=== PATIENT | male | born 1965 | race Caucasian/White ===

== ENCOUNTER 2018-02-13 17:45 | Inpatient (IN) | payer OTHER ==
[~2018-02-13] VITALS: Ht 180.3 cm; Wt 74.8 kg
--- NOTE | 2018-02-13 | NUR ---
VITAL SIGNS WNL. PT IN STABLE CONDITION, NO SIGNS OF DISTRESS NOTED. BED IN LOWEST POSITION, CALL LIGHT WITHIN REACH. WILL CONTINUE TO MONITOR. Addendum: 02/14/18 at 0734 by Idalmis Anthony RN PLEASE DISREGARD.
--- NOTE | 2018-02-13 04:49 | NUR ---
PT GIVEN SNACK OF SANDWICH, JUICE AND CRACKERS REQUESTED. PT ATE ALL THE FOOD. HE DENIES PAIN AND IS RESTING QUIETLY IN BED AT THIS TIME. IV NACL RUNNING AT 70 ORDERED, IV SITE PATENT WITH S/S OF INFILTRATION. CALL BELTRÁN IN REACH FREQUENT CHECKS RENDERED AND BED IN LOW POSITION WITH SIDE RAILS UP AT THIS TIME. V/S STABLE.PT SISTER JESSICA CALLED AND SAID THAT SHE WILL BE IN TO VISIT TOMORROW PT INFORMED.
[2018-02-13 17:49] VITALS: BP 124/79
--- NOTE | 2018-02-13 17:53 | NUR ---
PT AMB TO BED 3
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
[2018-02-13] MEDS ORDERED: NACL 0.9% 1,000 ML IV ONE (18:15)
--- NOTE | 2018-02-13 18:39 | NUR ---
social service technician at bedside.
[2018-02-13 18:53] LABS: BASOPHILS # (AUTO) 0.1 K/uL (0.00-0.22); BASOPHILS % (AUTO) 0.3 % (0.0-2.0); EOSINOPHILS # (AUTO) 0.1 K/uL (0-0.4); EOSINOPHILS % (AUTO) 0.8 % (0.0-4.0); HEMOGLOBIN 12.3 g/dL (12.0-18.0); LYMPHOCYTES # (AUTO) 1.4 K/uL (2.0-11.5); LYMPHOCYTES % (AUTO) 7.3 % (20.5-51.1); MEAN CORPUSCULAR HEMOGLOBIN 31 pg (27-31); MEAN CORPUSCULAR HGB CONC 33 g/dL (33-37); MEAN CORPUSCULAR VOLUME 93.8 fL (80-94); MONOCYTES # (AUTO) 0.8 K/uL (0.8-1.0); MONOCYTES % (AUTO) 4.4 % (1.7-9.3); NEUTROPHILS # (AUTO) 16.6 K/uL (1.8-7.7); PLATELET COUNT (AUTO) 465 K/uL (140-450); RED BLOOD CELL COUNT(AUTO) 3.95 MIL/uL (4.20-6.10); RED CELL DISTRIBUTION WIDTH 13.4 % (11.6-13.7)
--- NOTE | 2018-02-13 19:07 | NUR ---
Pt report given to BINDU SIDDIQUI. Transfer of care at this time.
[2018-02-13 19:10] LABS: ALBUMIN 2.7 g/dL (3.4-5.0); ANION GAP 10.8 (8-16); ASPARTATE AMINOTRANSFERASE 10 U/L (15-37); CHLORIDE 105 mmol/L (98-107); CREATININE 0.8 mg/dL (0.7-1.3); GFR ARICAN-AMERICAN 130 mL/min (>90); POTASSIUM 3.8 mmol/L (3.5-5.1); SODIUM SERUM 140 mmol/L (136-145); TOTAL BILIRUBIN 0.5 mg/dL (0.0-1.0); UREA NITROGEN, BLOOD 16 mg/dL (7-18)
--- NOTE | 2018-02-13 19:10 | NUR ---
GOT EPORT FROM BINDU BACA.
[2018-02-13 19:12] LABS: GLUCOSE 123 mg/dL (74-106)
[2018-02-13 19:24] LABS: NEUTROPHILS % (AUTO) 87.2 % (42.2-75.2)
[2018-02-13] MEDS ORDERED: PIPERACILLIN/TAZOBACTAM 4.5 GM in DEXTROSE 5% 100 ML IV ONE (19:50)
[2018-02-13] MEDS: NACL 0.9% 1,000 ML IV SCH (20:13)
[2018-02-13] MEDS ORDERED: ONDANSETRON 4 MG/2 ML VIAL IVP PRN (20:15)
[2018-02-13] MEDS ORDERED: MORPHINE SULFATE 4 MG/ML SYR IVP PRN (20:15)
[2018-02-13] MEDS ORDERED: ALBUTEROL 0.083% 2.5 MG/3 ML NEBU INH PRN (20:15)
[2018-02-13] MEDS ORDERED: PIPERACILLIN/TAZOBACTAM 2.25 GM VIAL IV ONE (20:45)
--- NOTE | 2018-02-13 20:45 | NUR ---
Patient will be admitted to care of . Admited to M/S. Will go to room. Belongings list completed. Report to BINDU PRADO.
--- NOTE | 2018-02-13 20:56 | NUR ---
PT ARRIVED TO FLOOR VIA W/C ESCORTED BY PIM RN. PT AOX4 SKIN INTACT EXCEPT FOR BOTTOM OF HIS FEET WHICH ARE NOTED WITH WHITE MOIST MACERATED SKIN. PT HAS 20G ON R HAND WITH ZOSYN RUNNING ORDERED, WHICH WAS STARTED IN ER. NO INFILTRATION OF IV SITE NOTED. PT CHIEF C/O WAS GENERALIZED WEAKNESS AND HE WAS DX WITH PN AFTER POSITIVE CHEST X RAY DONE IN THE ER. PT HAS HX OF HTN AND CABAGE. LUNG SOUND DIMINISHED, NO SOB NOTED PT RESPIRATIONS WERE EVEN AND UNLABORED PT HAS NO COMPLAINTS OF PAIN AT THIS TIME, HE EXPRESSED A DESIRE TO LEAVE BUT WAS WILLING TO STAY FOR THE NIGHT, BECAUSE THE DOCTOR WANTED HIM TO STAY. PT IS AMBULATORY AND WALKED TO THE BATHROOM TO WASH UP. MRSA SWAB DONE AND URINE SAMPLE PROVIDED. PT ASKED FOR FOOD WHICH WAS GIVEN TO HIM AFTER INTERVIEW ADMISSION QUESTIONS WERE FINISHED.
--- NOTE | 2018-02-13 21:00 | NUR ---
PICTURES TAKEN OF BOTTOM OF BOTH FEET FOR ADMISSION DOCUMENTATION. PT COOPERATIVE, NO S/S OF DISTRESS PT DENIES PAIN AT THIS TIME CALL BELTRÁN IN REACH AND BED IN LOW POSITION.
[2018-02-13 22:26] LABS: APPEARANCE,URINE CLOUDY (CLEAR); BILIRUBIN,URINE NEGATIVE (NEGATIVE); BLOOD, URINE NEGATIVE (NEGATIVE); COLOR,URINE YELLOW (YELLOW); LEUKOCYTE ESTERASE ,URINE NEGATIVE (NEGATIVE); NITRITE, URINE NEGATIVE (NEGATIVE); PH,URINE 7.5 (5.0-9.0); UGLUCOSE NEGATIVE (NEGATIVE)
[2018-02-13 22:31] LABS: BARBITURATE, URINE NEG. ng/ml (NEG <=200); BENZODIAZEPINE, URINE NEG. ng/mL (NEG <=200); CANNABINOID, URINE NEG. ng/mL (NEG <=50); COCAINE, URINE NEG. ng/mL (NEG <=300); OPIATE, URINE NEG. ng/mL (NEG <=2000); PHENCYCLIDINE SCREEN,URINE NEG. ng/mL (NEG <=25)
[2018-02-13 22:44] LABS: WBC,URINE 0-5 (RARE) /HPF (0-5)
[2018-02-13 22:45] LABS: RBC,URINE 0-5 (RARE) /HPF (0-5)
[2018-02-14] VITALS: BP 130/81
--- NOTE | 2018-02-14 | NUR ---
VITAL SIGNS WNL. PT IN STABLE CONDITION, NO SIGNS OF DISTRESS NOTED. BED IN LOWEST POSITION, CALL LIGHT WITHIN REACH. WILL CONTINUE TO MONITOR.
--- NOTE | 2018-02-14 04:00 | NUR ---
PT IN STABLE CONDITION, NO SIGNS OF DISTRESS NOTED. BED IN LOWEST POSITION, CALL LIGHT WITHIN REACH. WILL CONTINUE TO MONITOR.
[2018-02-14] MEDS ORDERED: PIPERACILLIN/TAZOBACTAM 3.375 GM VIAL IV ONE (05:32)
[2018-02-14] MEDS: PIPER/TAZO 3.375GM/D5W PREMIX 50 ML IV SCH ×2 (05:46→12:27)
--- NOTE | 2018-02-14 07:30 | NUR ---
RECEIVED REPORT FROM NIGHTSHIFT NURSE AT BEDSIDE. PATIENT ASLEEP AT THIS TIME BUT AROUSABLE TO NAME. NO SIGNS OF PAIN OR RESPIRATORY DISTRESS NOTED AT THIS TIME. PT HAS A RIGHT HAND 20 G INFUSING 70 ML/HR. PATIENT BED IN LOWEST POSITION. PLACED CALL LIGHT WITHIN REACH OF PATIENT. WILL CONTINUE TO MONITOR PATIENT.
--- NOTE | 2018-02-14 07:32 | NUR ---
ENDORSED PT TO DAY SHIFT RN NIVIA FOR CONTINUITY OF CARE. PT IN STABLE CONDITION.
[2018-02-14 07:53] LABS: BASOPHILS % (AUTO) 0.2 % (0.0-2.0); EOSINOPHILS # (AUTO) 0.4 K/uL (0-0.4); EOSINOPHILS % (AUTO) 2.8 % (0.0-4.0); HEMATOCRIT 37.2 % (36-52); LYMPHOCYTES # (AUTO) 1.9 K/uL (2.0-11.5); LYMPHOCYTES % (AUTO) 13.7 % (20.5-51.1); MEAN CORPUSCULAR HEMOGLOBIN 31 pg (27-31); MEAN CORPUSCULAR HGB CONC 32 g/dL (33-37); MEAN CORPUSCULAR VOLUME 94.9 fL (80-94); MONOCYTES # (AUTO) 0.9 K/uL (0.8-1.0); MONOCYTES % (AUTO) 6.4 % (1.7-9.3); NEUTROPHILS # (AUTO) 10.4 K/uL (1.8-7.7); NEUTROPHILS % (AUTO) 76.9 % (42.2-75.2); PLATELET COUNT (AUTO) 483 K/uL (140-450); RED BLOOD CELL COUNT(AUTO) 3.92 MIL/uL (4.20-6.10); RED CELL DISTRIBUTION WIDTH 13.5 % (11.6-13.7); WHITE BLOOD COUNT (AUTO) 13.5 K/uL (4.8-10.8)
[2018-02-14 08:00] VITALS: BP 104/73
[2018-02-14 08:09] LABS: ALBUMIN 2.4 g/dL (3.4-5.0); CARBON DIOXIDE 25.8 mmol/L (21-32); CREATININE 0.7 mg/dL (0.7-1.3); POTASSIUM 3.8 mmol/L (3.5-5.1); TOTAL BILIRUBIN 0.3 mg/dL (0.0-1.0)
--- NOTE | 2018-02-14 08:25 | NUR ---
ASLEEP NO EVIDENCE OD PULMONARY DISTRESS NOTED AT THIS TIME
[2018-02-14] MEDS ORDERED: ENOXAPARIN 30 MG/0.3 ML SYR SUBQ SCH (09:00)
--- NOTE | 2018-02-14 10:05 | NUR ---
PATIENT TOOK AM MEDICATION LOVENOX. PATIENT TOLERATED WELL.
[2018-02-14] MEDS: NACL 0.9% 1,000 ML IV SCH (10:38)
--- NOTE | 2018-02-14 11:39 | NUR ---
PATIENT ASLEEP AT THIS TIME. NO COMPLAINTS OF PAIN OR RESPIRATORY DISTRESS NOTED. WILL CONTINUE TO MONITOR PATIENT.
[2018-02-14] MEDS ORDERED: TRAZ-286 PO ×2 (11:44→11:46)
[2018-02-14] MEDS ORDERED: MIRT15TA PO ×2 (11:44→11:46)
[2018-02-14] MEDS ORDERED: DOXY100C9 PO (11:46)
--- NOTE | 2018-02-14 12:33 | NUR ---
PATIENT LAYING IN BED. NO COMPLAINTS OF PAIN. WILL CONTINUE TO MONITOR PATIENT.
--- NOTE | 2018-02-14 13:00 | NUR ---
PATIENT TOOK A SHOWER. PATIENT ABLE TO AMBULATE BACK AND FORTH FROM ROOM. PATIENT TOLERATED WELL.
--- NOTE | 2018-02-14 14:30 | NUR ---
PATIENT SIGNED ALL DISCHARGE PAPERS AND IS AWARE OF ALL PRESCRIPTIONS. PATIENT VERBALIZED UNDERSTANDING OF ALL INSTRUCTIONS. DISCONTINUED PATIENT'S IV WITH CATHETER STILL INTACT. PATIENT GATHERED ALL BELONGINGS AND LEFT IN STABLE CONDITION. WALKED PATIENT TO LOBBY. PATIENT ABLE TO AMBULATE WELL.
--- NOTE | 2018-02-15 08:48 | NUR ---
WOUND CARE EVALUATION NOT DONE. PT. DISCHARGED.
--- NOTE | 2018-02-16 17:08 | NUR ---
RETRO FAXED ER REPORT, H&P TO [facility] [phone] NO DC SUMMARY Addendum: 02/16/18 at 1709 by Kelly Vale CM FAXED DISCHARGE INSTRUCTIONS, NO DC SUMMARY
== END 2018-02-14 14:30 | disposition home or self-care (01) | DRG 720 ==
LOC: MED 17:45 → MTU 20:24
PROVIDERS: ADMIT Hospitalist; ATTEND Hospitalist
DX: A41.9 Sepsis, unspecified organism (principal); E43 Unspecified severe protein-calorie malnutrition; J18.1 Lobar pneumonia, unspecified organism; F15.20 Other stimulant dependence, uncomplicated; I25.2 Old myocardial infarction; Z95.1 Presence of aortocoronary bypass graft; Z72.0 Tobacco use; J44.9 Chronic obstructive pulmonary disease, unspecified; M19.90 Unspecified osteoarthritis, unspecified site; Z71.6 Tobacco abuse counseling
CPT/HCPCS: 36415; 71045; 80053; 80305; 81001; 82550; 83605; 84484; 85025; 86702; 87040; 87086; 93005; 96361; 96365; 99285; G0482; J1650; J2543; J7060; Q0092

== ENCOUNTER 2018-03-18 20:53 | Emergency (ER) | payer SELFPAY ==
[~2018-03-18] VITALS: Ht 180.3 cm; Wt 74.8 kg
[~2018-03-18 20:53] MED LIST: DOXY100C9 PO; MIRT15TA PO; TRAZ-286 PO
[2018-03-18 21:03] VITALS: BP 136/76
--- NOTE | 2018-03-18 21:06 | NUR ---
TO LOBBY A/W MERRY LAINEZ ERMD NOTED
--- NOTE | 2018-03-18 21:46 | NUR ---
PT TAKEN TO BED 10
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
--- NOTE | 2018-03-18 21:55 | NUR ---
PT MOVED TO CHAIR E
[2018-03-18] MEDS ORDERED: KETOROLAC 30 MG/ML VIAL IM ONE (22:35)
[2018-03-18 23:00] VITALS: BP 118/72
--- NOTE | 2018-03-18 23:00 | NUR ---
Patient discharged with v/s stable. Written and verbal after care instructions given and explained. Patient alert, oriented and verbalized understanding of instructions. Ambulatory with steady gait. All questions addressed prior to discharge. ID band removed. Patient advised to follow up with PMD. Rx of CLOTRIMAZOLE, KEFLEX, NAPROSYN given. Patient educated on indication of medication including possible reaction and side effects. Opportunity to ask questions provided and answered.
== END 2018-03-18 23:00 | disposition home or self-care (01) ==
LOC: MED 20:53
DX: S90.862A Insect bite (nonvenomous), left foot, initial encounter (principal); B35.3 Tinea pedis; I10 Essential (primary) hypertension; Z98.890 Other specified postprocedural states; Z79.899 Other long term (current) drug therapy; W57.XXXA Bitten or stung by nonvenomous insect and other nonvenomous arthropods, initial encounter; Y93.89 Activity, other specified; Y99.8 Other external cause status; Y92.89 Other specified places as the place of occurrence of the external cause
CPT/HCPCS: 96372; 99283; J1885

== ENCOUNTER 2018-08-07 09:00 | Emergency (ER) | payer MEDICAID ==
[~2018-08-07] VITALS: Ht 180.3 cm; Wt 77.6 kg
[~2018-08-07 09:00] MED LIST changes: -TRAZ-286 PO; +TRAZ-370 PO
[2018-08-07 09:05] VITALS: BP 131/94
--- NOTE | 2018-08-07 09:10 | NUR ---
52Y/M BIB SELF C/O FERMIN FOOT PAIN X 6 MONTHS, DENIES ANY TRAUMA/INJURY. 10/10 PAIN SCALE, - SWELLING, - REDNESS, PIN & NEEDLE FEELING IN FERMIN FOOT. PT STATES " HE WALKS DAILY BUT PAIN IS WORSE TODAY". PT AAOX4, VSS, BED DOWN, BEDRAIL UP X 1, ER MD AWARE AND NOTIFIED OF PT STATUS. HX; BYPASS;HEART ATTACK;HERNIA; PRE DIABETIC, NEUROPATHY RX;NONE
[2018-08-07] MEDS ORDERED: KETOROLAC 60 MG/2 ML VIAL IM ONE (09:40)
--- NOTE | 2018-08-07 09:41 | NUR ---
Patient being evaluated by physician at bedside.
[2018-08-07 10:12] LABS: BASOPHILS % (AUTO) 0.5 % (0.0-2.0); EOSINOPHILS # (AUTO) 0.3 K/uL (0-0.4); EOSINOPHILS % (AUTO) 3.7 % (0.0-4.0); HEMATOCRIT 37.9 % (36-52); HEMOGLOBIN 12.6 g/dL (12.0-18.0); LYMPHOCYTES # (AUTO) 1.7 K/uL (2.0-11.5); LYMPHOCYTES % (AUTO) 24.3 % (20.5-51.1); MEAN CORPUSCULAR HEMOGLOBIN 31 pg (27-31); MEAN CORPUSCULAR HGB CONC 33 g/dL (33-37); MEAN CORPUSCULAR VOLUME 94.3 fL (80-94); MONOCYTES # (AUTO) 0.6 K/uL (0.8-1.0); MONOCYTES % (AUTO) 8.8 % (1.7-9.3); NEUTROPHILS # (AUTO) 4.5 K/uL (1.8-7.7); NEUTROPHILS % (AUTO) 62.7 % (42.2-75.2); PLATELET COUNT (AUTO) 235 K/uL (140-450); RED BLOOD CELL COUNT(AUTO) 4.02 MIL/uL (4.20-6.10); RED CELL DISTRIBUTION WIDTH 13.2 % (11.6-13.7); WHITE BLOOD COUNT (AUTO) 7.2 K/uL (4.8-10.8)
[2018-08-07 10:35] LABS: ANION GAP 10.7 (8-16); CARBON DIOXIDE 27.7 mmol/L (21-32); CREATININE 0.6 mg/dL (0.7-1.3); POTASSIUM 3.4 mmol/L (3.5-5.1)
[2018-08-07 10:39] LABS: BILIRUBIN,URINE NEGATIVE (NEGATIVE); BLOOD, URINE NEGATIVE (NEGATIVE); COLOR,URINE YELLOW (YELLOW); LEUKOCYTE ESTERASE ,URINE NEGATIVE (NEGATIVE); NITRITE, URINE NEGATIVE (NEGATIVE); UGLUCOSE NEGATIVE (NEGATIVE)
[2018-08-07 10:41] LABS: ALBUMIN 3.4 g/dL (3.4-5.0); TOTAL BILIRUBIN 0.3 mg/dL (0.0-1.0)
[2018-08-07 10:59] LABS: APPEARANCE,URINE CLEAR (CLEAR); RBC,URINE 0-5 (RARE) /HPF (0-5); WBC,URINE 0-5 (RARE) /HPF (0-5)
[2018-08-07 11:02] VITALS: BP 128/89
--- NOTE | 2018-08-07 11:02 | NUR ---
Patient discharged with v/s stable. Written and verbal after care instructions given and explained. Patient alert, oriented and verbalized understanding of instructions. Ambulatory with steady gait. All questions addressed prior to discharge. ID band removed. Patient advised to follow up with PMD. Rx of tylenol and naprosyn given. Patient educated on indication of medication including possible reaction and side effects. Opportunity to ask questions provided and answered.
== END 2018-08-07 11:02 | disposition home or self-care (01) ==
LOC: MED 09:00
DX: M79.671 Pain in right foot (principal); M79.672 Pain in left foot; I10 Essential (primary) hypertension; G62.9 Polyneuropathy, unspecified; Z95.1 Presence of aortocoronary bypass graft; Z79.2 Long term (current) use of antibiotics; Z79.83 Long term (current) use of bisphosphonates
CPT/HCPCS: 36415; 73630; 80053; 81001; 81002; 82948; 85025; 96372; 99285; J1885

== ENCOUNTER 2018-11-27 18:11 | Emergency (ER) | payer MEDICAID, OTHER ==
[~2018-11-27] VITALS: Ht 180.3 cm; Wt 71.7 kg
[~2018-11-27 18:11] MED LIST changes: -TRAZ-370 PO; +TRAZ-466 PO
[2018-11-27 18:37] VITALS: BP 149/86
--- NOTE | 2018-11-27 19:17 | NUR ---
PT AMBULATED TO BED 2
--- NOTE | 2018-11-27 19:43 | NUR ---
PT BIB SELF C/O BUG BITE TO L ANKLE FOR 6 MONTHS. AREA IS RED, WITH A HEALED SCAB, BLEEDING CONTROLLED. PAIN 2/10.
--- NOTE | 2018-11-27 20:00 | NUR ---
PT GIVEN FOOD AND HOMELESS PACKET AT THIS TIME
[2018-11-27 20:51] VITALS: BP 145/85
--- NOTE | 2018-11-27 20:51 | NUR ---
Patient discharged with v/s stable. Written and verbal after care instructions given and explained. Patient alert, oriented and verbalized understanding of instructions. Ambulatory with steady gait. All questions addressed prior to discharge. ID band removed. Patient advised to follow up with PMD. Rx of motrin, gabapentin, aspirin, gold wallis max strength given. Patient educated on indication of medication including possible reaction and side effects. Opportunity to ask questions provided and answered. homeless packet given, homeless form signed, bus pass given to patient.
== END 2018-11-27 20:51 | disposition home or self-care (01) ==
LOC: MED 18:11
DX: M79.671 Pain in right foot (principal); M79.672 Pain in left foot; I10 Essential (primary) hypertension; I25.10 Atherosclerotic heart disease of native coronary artery without angina pectoris; Z79.2 Long term (current) use of antibiotics; Z79.899 Other long term (current) drug therapy; Z95.1 Presence of aortocoronary bypass graft
CPT/HCPCS: 93005; 99283

== ENCOUNTER 2018-12-18 20:29 | Inpatient (IN) | payer OTHER ==
[~2018-12-18] VITALS: Ht 180.3 cm; Wt 74.4 kg
[2018-12-18 20:30] VITALS: BP 136/84
--- NOTE | 2018-12-18 20:31 | NUR ---
PT TAKEN TO BED 3
[2018-12-18] MEDS ORDERED: KETOROLAC 30 MG/ML VIAL IVP ONE (20:45)
[2018-12-18] MEDS ORDERED: NACL 0.9% 1,000 ML IV ONE ×3 (20:45→23:20)
--- NOTE | 2018-12-18 22:09 | NUR ---
Dr. sIrael evaluating patient at bedside.
--- NOTE | 2018-12-18 22:27 | NUR ---
Note blake in EDM - 12/18/18 at 2320 by CASH PT WITH MILD CRACKLES, PT DENIES SOB, ER MADE AWARE, CLARIFIED 1L NS BOLUS FOR TACHYCARDIA. ADMINSITERED ORDERED WITH EDUCATION, PT VERBALIZED UNDERSTANDING, TOLERATING WELL.
--- NOTE | 2018-12-18 22:27 | NUR ---
PT WITH MILD RHONCHI, PT DENIES SOB, ER MADE AWARE, CLARIFIED 1L NS BOLUS FOR TACHYCARDIA. ADMINSITERED ORDERED WITH EDUCATION, PT VERBALIZED UNDERSTANDING, TOLERATING WELL.
--- NOTE | 2018-12-18 23:20 | NUR ---
PT LAYING IN BED, VS NOTED, RR EVEN AND UNLABORED, LUNGS SOUNDS WITH RHONCHI. SECOND 1L NS BOLUS FOR TACHYCARDIA PER VERBAL ORDER FROM DR CARBALLO. ADMINSITERED ORDERED WITH EDUCATION, PT VERBALIZED UNDERSTANDING, TOLERATING WELL. SPOKE WITH PT'S MOTHER REGARDING PLAN OF CARE WITH PT'S PERMISSION.
[2018-12-19] MEDS ORDERED: cefTRIAXone 1,000 MG in DEXT 5% MINI-BAG PLUS 50 ML IV ONE (01:30)
[2018-12-19] MEDS ORDERED: NACL 0.9% 1,000 ML IV ONE (01:30)
[2018-12-19] MEDS ORDERED: MORPHINE SULFATE 4 MG/ML SYR IVP ONE (01:45)
[2018-12-19] MEDS ORDERED: cefTRIAXone 1,000 MG VIAL ONE (01:50)
[2018-12-19 03:12] LABS: APPEARANCE,URINE CLEAR (CLEAR); BILIRUBIN,URINE NEGATIVE (NEGATIVE); BLOOD, URINE NEGATIVE (NEGATIVE); COLOR,URINE YELLOW (YELLOW); LEUKOCYTE ESTERASE ,URINE NEGATIVE (NEGATIVE); NITRITE, URINE NEGATIVE (NEGATIVE); PH,URINE 6.5 (5.0-9.0); UGLUCOSE NEGATIVE (NEGATIVE)
[2018-12-19 03:15] LABS: BASOPHILS % (AUTO) 0.3 % (0.0-2.0); EOSINOPHILS # (AUTO) 0.2 K/uL (0-0.4); EOSINOPHILS % (AUTO) 1.1 % (0.0-4.0); HEMOGLOBIN 13.4 g/dL (12.0-18.0); LYMPHOCYTES % (AUTO) 14.5 % (20.5-51.1); MEAN CORPUSCULAR HEMOGLOBIN 31 pg (27-31); MEAN CORPUSCULAR HGB CONC 33 g/dL (33-37); MEAN CORPUSCULAR VOLUME 93.8 fL (80-94); MONOCYTES % (AUTO) 7.1 % (1.7-9.3); NEUTROPHILS # (AUTO) 10.9 K/uL (1.8-7.7); PLATELET COUNT (AUTO) 218 K/uL (140-450); RED BLOOD CELL COUNT(AUTO) 4.37 MIL/uL (4.20-6.10); RED CELL DISTRIBUTION WIDTH 13.2 % (11.6-13.7); WHITE BLOOD COUNT (AUTO) 14.1 K/uL (4.8-10.8)
[2018-12-19 03:27] LABS: ANION GAP 10.7 (8-16); CARBON DIOXIDE 27.8 mmol/L (21-32); CREATININE 0.8 mg/dL (0.7-1.3); POTASSIUM 3.5 mmol/L (3.5-5.1)
[2018-12-19 03:32] LABS: ALBUMIN 2.8 g/dL (3.4-5.0); TOTAL BILIRUBIN 0.2 mg/dL (0.0-1.0)
[2018-12-19] MEDS ORDERED: ACETAMINOPHEN 325 MG TAB PO PRN (04:10)
[2018-12-19] MEDS ORDERED: ONDANSETRON 4 MG/2 ML VIAL IVP PRN (04:10)
[2018-12-19 04:30] VITALS: BP 116/71
--- NOTE | 2018-12-19 04:30 | NUR ---
PT ARRIVED TO UNIT VIA GURNEY AND AMBULATED TO BED WITH A STEADY GATE. RECEIVED REPORT FROM ER NURSE ROXANNA-RN AT BEDSIDE. PT AOX4, ON ROOM AIR WITH LEFT AC #20G. DISCUSSED PLAN OF CARE AND PT VERBALIZED UNDERSTANDING. NO S/S OF RESPIRATORY DISTRESS OR DISCOMFORT NOTED AT THIS TIME. BED IN LOWEST POSITION, BED BREAKS ON, BOTH SIDE RAILS UP. BEDSIDE TABLE AND CALL LIGHT ARE WITHIN REACH. VITAL SIGNS TAKEN AND TOLERATED WELL. PT C/O BODY ACHES 03/21- WILL ADMINISTER PAIN MEDICATION. MRSA SWAB COLLECTED. WILL CONTINUE TO MONITOR.
[2018-12-19] MEDS: NACL 0.9% 1,000 ML IV SCH ×3 (05:11→20:08)
[2018-12-19] MEDS ORDERED: AZITHROMYCIN 500 MG INJ VIAL IV ONE (05:34)
[2018-12-19] MEDS: HYDROcodone/APAP 5/325 MG 1 TAB TAB PO PRN ×3 (05:39→18:57)
[2018-12-19] MEDS: AZITHROMYCIN 500 MG in DEXTROSE 5% 250 ML IV SCH (05:39)
--- NOTE | 2018-12-19 05:39 | NUR ---
SCHEDULED MEDICATION ZITHROMAX GIVEN AND TOLERATED WELL. NORCO GIVEN FOR PAIN AND TOLERATED WELL. NO S/S OF RESPIRATORY DISTRESS OR DISCOMFORT NOTED AT THIS TIME. WILL CONTINUE TO MONITOR.
--- NOTE | 2018-12-19 07:34 | NUR ---
ENDORSED PT CARE TO DAY SHIFT NURSE NEREYDA FOR CONTINUITY OF CARE.
--- NOTE | 2018-12-19 07:35 | NUR ---
RECEIVED REPORT FROM OTR VAN CDL TRUCK DRIVER NURSE FOR CONTINUITY OF CARE. PT IN STABLE CONDITION. RESPIRATIONS EVEN AND UNLABORED. IV INTACT AND PATENT. O2 2L VIA NC PATENT. SAFETY MEASURES IN PLACE. BED IN LOW POSITION, CALL LIGHT AT BEDSIDE, BED ALARM ON. WILL CONTINUE TO MONITOR.
[2018-12-19 08:00] VITALS: BP 94/59
[2018-12-19] MEDS: ENOXAPARIN 40 MG/0.4 ML SYR SUBQ SCH (09:50)
--- NOTE | 2018-12-19 11:09 | NUR ---
REMOVED TELE MONITOR AT THIS TIME. PT NOW MED SURG.
--- NOTE | 2018-12-19 11:26 | NUR ---
PT REQUEST SHOWER AT THIS TIME. WALKED TO SHOWER IN STABLE CONDITION. WILL CONTINUE TO MONITOR.
[2018-12-19 12:00] VITALS: BP 114/74
--- NOTE | 2018-12-19 15:00 | NUR ---
PT C/O 03/21 PAIN MEDICATE WITH NORCO. WILL CONTINUE TO MONITOR.
[2018-12-19 16:00] VITALS: BP 114/73
--- NOTE | 2018-12-19 19:24 | NUR ---
GAVE REPORT TO EQUIPMENT INSPECTOR NURSE FOR CONTINUITY OF CARE. PT IN STABLE CONDITION.
--- NOTE | 2018-12-19 19:25 | NUR ---
RECEIVED REPORT FROM DAY SHIFT NURSE RAUL-RN AT BEDSIDE. PT AOX4, ON ROOM AIR WITH LEFT AC #20G. DISCUSSED PLAN OF CARE AND PT VERBALIZED UNDERSTANDING. NO S/S OF RESPIRATORY DISTRESS OR DISCOMFORT NOTED AT THIS TIME. BED IN LOWEST POSITION, BED BREAKS ON, BOTH SIDE RAILS UP. BEDSIDE TABLE AND CALL LIGHT ARE WITHIN REACH. WILL CONTINUE TO MONITOR.
[2018-12-19 20:00] VITALS: BP 102/49
--- NOTE | 2018-12-19 21:00 | NUR ---
PT SLEEPING IN BED. NO S/S OF RESPIRATORY DISTRESS OR DISCOMFORT NOTED AT THIS TIME. WILL CONTINUE TO MONITOR.
--- NOTE | 2018-12-19 22:00 | NUR ---
SPUTUM SAMPLE PROVIDED BY PT IN SPECIMEN CUP. WILL SEND TO LAB.
[2018-12-20] VITALS: BP 110/59
--- NOTE | 2018-12-20 | NUR ---
VITAL SIGNS TAKEN AND TOLERATED WELL. NO S/S OF RESPIRATORY DISTRESS OR DISCOMFORT NOTED AT THIS TIME. WILL CONTINUE TO MONITOR.
--- NOTE | 2018-12-20 01:15 | NUR ---
SCHEDULED MEDICATION ROCEPHIN GIVEN AND TOLERATED WELL. NO S/S OF RESPIRATORY DISTRESS OR DISCOMFORT NOTED AT THIS TIME. WILL CONTINUE TO MONITOR.
--- NOTE | 2018-12-20 02:00 | NUR ---
PT SLEEPING IN BED. NO S/S OF RESPIRATORY DISTRESS OR DISCOMFORT NOTED AT THIS TIME. WILL CONTINUE TO MONITOR.
[2018-12-20] MEDS: AZITHROMYCIN 500 MG in DEXTROSE 5% 250 ML IV SCH (03:41)
--- NOTE | 2018-12-20 03:41 | NUR ---
SCHEDULED MEDICATION ZITHROMAX GIVEN AND TOLERATED WELL. PT CONTINUES TO SLEEP. NO S/S OF RESPIRATORY DISTRESS OR DISCOMFORT NOTED AT THIS TIME. WILL CONTINUE TO MONITOR.
[2018-12-20] MEDS: NACL 0.9% 1,000 ML IV SCH ×2 (03:42→12:08)
--- NOTE | 2018-12-20 06:00 | NUR ---
PT CONTINUES TO SLEEP IN BED. NO S/S OF RESPIRATORY DISTRESS OR DISCOMFORT NOTED AT THIS TIME. WILL CONTINUE TO MONITOR.
[2018-12-20 06:41] LABS: BASOPHILS % (AUTO) 0.3 % (0.0-2.0); EOSINOPHILS # (AUTO) 0.4 K/uL (0-0.4); EOSINOPHILS % (AUTO) 4.5 % (0.0-4.0); HEMATOCRIT 39.2 % (36-52); HEMOGLOBIN 12.8 g/dL (12.0-18.0); LYMPHOCYTES # (AUTO) 2.4 K/uL (2.0-11.5); LYMPHOCYTES % (AUTO) 24.9 % (20.5-51.1); MEAN CORPUSCULAR HEMOGLOBIN 31 pg (27-31); MEAN CORPUSCULAR HGB CONC 33 g/dL (33-37); MONOCYTES # (AUTO) 0.8 K/uL (0.8-1.0); MONOCYTES % (AUTO) 7.7 % (1.7-9.3); NEUTROPHILS # (AUTO) 6.1 K/uL (1.8-7.7); NEUTROPHILS % (AUTO) 62.6 % (42.2-75.2); PLATELET COUNT (AUTO) 216 K/uL (140-450); RED BLOOD CELL COUNT(AUTO) 4.17 MIL/uL (4.20-6.10); RED CELL DISTRIBUTION WIDTH 13.4 % (11.6-13.7); WHITE BLOOD COUNT (AUTO) 9.8 K/uL (4.8-10.8)
[2018-12-20 06:52] LABS: ANION GAP 10.1 (8-16); CARBON DIOXIDE 27.1 mmol/L (21-32); CREATININE 0.7 mg/dL (0.7-1.3); POTASSIUM 4.2 mmol/L (3.5-5.1)
[2018-12-20 06:57] LABS: MAGNESIUM 1.7 mg/dL (1.8-2.4); PHOSPHORUS 3.4 mg/dL (2.5-4.9)
--- NOTE | 2018-12-20 07:24 | NUR ---
ENDORSED PT CARE TO DAY SHIFT NURSE NEREYDA FOR CONTINUITY OF CARE.
--- NOTE | 2018-12-20 07:25 | NUR ---
RECEIVED REPORT FROM BIN TRIPPER OPERATOR NURSE FOR CONTINUITY OF CARE. PT IN STABLE CONDITION. RESPIRATIONS EVEN AND UNLABORED. IV INTACT AND PATENT. SAFETY MEASURES IN PLACE. BED IN LOW POSITION. CALL LIGHT AT BEDSIDE. WILL CONTINUE TO MONITOR.
--- NOTE | 2018-12-20 08:35 | NUR ---
PATIENT HAS BEEN SCREENED AND CATEGORIZED MODERATE NUTRITION RISK. PATIENT WILL BE SEEN WITHIN 3-5 DAYS OF ADMISSION. 12/21/18ZACH [address]
[2018-12-20] MEDS ORDERED: ASPIRIN 81 MG TAB.CHEW PO SCH (09:00)
[2018-12-20] MEDS ORDERED: ATORVASTATIN 20 MG TAB PO SCH (09:00)
--- NOTE | 2018-12-20 09:10 | NUR ---
GAVE ORDERED DUE MEDICATIONS AT THIS TIME. PT TOLERATED WELL. WILL CONTINUE TO MONITOR.
--- NOTE | 2018-12-20 09:18 | NUR ---
CM NOTE I ATTEMPTED TO MAKE AN OUTPATIENT FOLLOW UP APPOINTMENT FOR THE PATIENT AND SPOKE WITH KAVITA CASH OF [facility] (PCP) PH# [phone]. PER KAVITA CASH THEY ARE A WALK-IN CLINIC AND THEY DO NOT DO APPOINTMENT SCHEDULES. PER KAVITA CASH, THE CLINIC IS OPEN MONDAYS TO FRIDAYS 8:00 AM-8:00 PM, SATURDAYS 8:30 AM-5:00 PM, SUNDAYS 9:00 AM-4:00 PM AND THE ADDRESS TO THE CLINIC IS [address] [place] [address]. I PROVIDED THE PATIENT WITH THE CLINIC ADDRESS AND SCHEDULE.
[2018-12-20] MEDS ORDERED: AZIT250T3 PO (09:32)
[2018-12-20] MEDS ORDERED: AMOX875T3 PO (09:32)
[2018-12-20] MEDS ORDERED: ASPI81CT95 PO (09:32)
[2018-12-20] MEDS ORDERED: ALBU0.0912 INH (09:46)
[2018-12-20] MEDS ORDERED: MAG SULF 2000 MG/WATER PREMIX 50 ML IV SCH (10:00)
[2018-12-20] MEDS: ENOXAPARIN 40 MG/0.4 ML SYR SUBQ SCH (10:19)
--- NOTE | 2018-12-20 12:30 | NUR ---
PT C/O PAIN 6/10 BODY ACHES. MEDICATE WITH NORCO. PT TOLERATED WELL. WILL CONTINUE TO MONITOR.
--- NOTE | 2018-12-20 15:00 | NUR ---
GAVE DISCHARGE INSTRUCTIONS AND PRESCRIPTION TO TAKE TO HOME PHARMACY, BUS PAS GIVEN, RESOURCE PACKET GIVEN DUE TO HOMELESSNESS, PT VERBALIZED UNDERSTANDING OF INSTRUCTIONS. ALL QUESTIONS ANSWERED AT THIS TIME. IV REMOVED, LUMEN INTACT. ID BAND REMOVED. PT REFUSED WHEELCHAIR. PT WAS ESCORTED OUT TO LOBBY IN STABLE CONDITION.
--- NOTE | 2018-12-21 08:14 | NUR ---
Late entry. Confirmed with RN that 0.9NS IV bolus 1st ended at 2330. The second IV bolus 0.9NS ended at 2420. The third IV bolus 0.9NS ended at 0300. Rocephin was also given with an end time of 0230.
== END 2018-12-20 15:00 | disposition home or self-care (01) | DRG 720 ==
LOC: MED 20:29 → MTU 12-19 04:08
PROVIDERS: ADMIT Hospitalist; ATTEND Hospitalist
DX: A41.9 Sepsis, unspecified organism (principal); J18.9 Pneumonia, unspecified organism; I50.9 Heart failure, unspecified; E44.1 Mild protein-calorie malnutrition; E83.42 Hypomagnesemia; Z68.22 Body mass index [BMI] 22.0-22.9, adult; F17.210 Nicotine dependence, cigarettes, uncomplicated; I25.10 Atherosclerotic heart disease of native coronary artery without angina pectoris; F15.10 Other stimulant abuse, uncomplicated; D72.829 Elevated white blood cell count, unspecified; Z91.19 Patient's noncompliance with other medical treatment and regimen; I25.2 Old myocardial infarction; Z95.1 Presence of aortocoronary bypass graft; Z59.0 Homelessness
CPT/HCPCS: 36415; 71045; 80048; 80053; 81003; 82550; 83605; 83735; 83880; 84100; 84484; 85025; 87040; 87070; 87081; 87086; 87205; 87804; 96374; 96375; 99285; J0456; J0696; J1650; J1885; J2270; J3475; J7030; J7060; Q0092

== ENCOUNTER 2019-11-04 00:50 | Emergency (ER) | payer OTHER ==
[~2019-11-04] VITALS: Ht 180.3 cm; Wt 77.1 kg
[~2019-11-04 00:50] MED LIST changes: +ALBU0.0912 INH; +AMOX875T3 PO; +ASPI81CT95 PO; +AZIT250T3 PO; -DOXY100C9 PO
[2019-11-04 00:55] VITALS: BP 115/73
--- NOTE | 2019-11-04 00:58 | NUR ---
TO LOBBY A/W BED AMBULATORY
--- NOTE | 2019-11-04 03:25 | NUR ---
PT AMBULATED TO BED 5
--- NOTE | 2019-11-04 03:34 | NUR ---
54 Y/O MALE C/O BILATERAL FOOT PAIN AND "HEART ACHE WHEN IT IS COLD". PT STATES 10/10 ACHING/BURNING PAIN TO FEET AND CHEST X 1 YEAR. PAIN WORSE WITH AMBULATION. ABLE TO AMBULATE. STATES HE HAS NEUROPATHY AND PAIN IS WORSENING TODAY. PT LAYING IN BED WITH EYES CLOSED, RR EVEN AND UNLABORED. VSS. MEDHX: CARDIAC FAILURE, DM, NEUROPATHY
--- NOTE | 2019-11-04 04:29 | NUR ---
PT LAYING WITH EYES CLOSED, VISIBLE RISE AND FALL OF THE CHEST. RR EVEN AND UNLABORED. X1 SIDE RAIL RAISED. VSS. WILL CONTINUE TO MONITOR.
--- NOTE | 2019-11-04 05:50 | NUR ---
DR RICHEY AT BEDSIDE EXAMINING PT.
--- NOTE | 2019-11-04 05:51 | NUR ---
RR EVEN AND UNLABORED, VISIBLE RISE AND FALL OF THE CHEST. WILL CONTINUE TO MONITOR. VSS.
[2019-11-04] MEDS ORDERED: KETOROLAC 60 MG/2 ML VIAL IM ONE (06:10)
[2019-11-04 06:33] VITALS: BP 115/73
--- NOTE | 2019-11-04 06:33 | NUR ---
PT STATES DECREASE IN PAIN AFTER MEDICATION. 2/10 FOOT PAIN
--- NOTE | 2019-11-04 06:34 | NUR ---
Note torione in EDM - 11/04/19 at 0636 by [email or web address] Patient discharged with v/s stable. Written and verbal after care instructions given and explained. Patient alert, oriented and verbalized understanding of instructions. Ambulatory with steady gait. All questions addressed prior to discharge. ID band removed. Patient advised to follow up with PMD. Rx of NAPROSYN given. Patient educated on indication of medication including possible reaction and side effects. Opportunity to ask questions provided and answered.
--- NOTE | 2019-11-04 06:36 | NUR ---
PT REFUSED TO TAKE PAPERWORK AND PRESCRIPTION GIVEN BY DOCTOR.
== END 2019-11-04 06:33 | disposition home or self-care (01) ==
LOC: MED 00:50
DX: S96.912A Strain of unspecified muscle and tendon at ankle and foot level, left foot, initial encounter (principal); S96.911A Strain of unspecified muscle and tendon at ankle and foot level, right foot, initial encounter; E11.9 Type 2 diabetes mellitus without complications; Z79.82 Long term (current) use of aspirin; Z79.899 Other long term (current) drug therapy; X58.XXXA Exposure to other specified factors, initial encounter; Y93.89 Activity, other specified; Y92.89 Other specified places as the place of occurrence of the external cause; Y99.8 Other external cause status
CPT/HCPCS: 96372; 99283; J1885

== ENCOUNTER 2019-11-06 05:57 | Emergency (ER) | payer OTHER ==
[~2019-11-06] VITALS: Ht 180.3 cm; Wt 79.4 kg
[2019-11-06 06:03] VITALS: BP 111/63
--- NOTE | 2019-11-06 06:10 | NUR ---
PT AMBULATED TO BED 4
--- NOTE | 2019-11-06 06:31 | NUR ---
X-Ray at bedside.
--- NOTE | 2019-11-06 06:42 | NUR ---
54 Y/O MALE PRESENTS TO ED, C/O CHEST PAIN THAT STARTED 3 DAYS AGO AND WORSENING TODAY. PT STATES PAIN IS 7/10, DOES NOT RADIATE; "FEELS WORSE AT NIGHT WHEN IT'S COLD". PT TAKES NAPROSYN FOR PAIN BUT WITH LITTLE RELIEF. PT DENIES ANY SOB/DIFFICULTY BREATHING; LUNG SOUNDS BILAT CLEAR. PT C/O RIGHT FOOT PAIN; STATES BEING HOMELESS AND WALKING FREQUENTLY CAUSING FOOT PAIN. PT ABLE TO AMBULATE WITH STEADY GAIT. FOOT PAIN DOES NOT RADIATE. PT ENDORSED THE USE OF METH BUT GUARDED ABOUT LAST USE. PT VSS. PLACED ON MONITOR. ERMD AWARE. WILL CONTINUE TO MONITOR.
--- NOTE | 2019-11-06 06:45 | NUR ---
BLOOD DRAWN AND SENT TO LAB AT THIS TIME
[2019-11-06 06:52] LABS: BASOPHILS % (AUTO) 0.3 % (0.0-2.0); EOSINOPHILS # (AUTO) 0.1 K/uL (0-0.4); EOSINOPHILS % (AUTO) 0.7 % (0.0-4.0); HEMATOCRIT 41.5 % (36-52); HEMOGLOBIN 13.5 g/dL (12.0-18.0); LYMPHOCYTES % (AUTO) 9.4 % (20.5-51.1); MEAN CORPUSCULAR HEMOGLOBIN 31 pg (27-31); MEAN CORPUSCULAR HGB CONC 33 g/dL (33-37); MEAN CORPUSCULAR VOLUME 96.2 fL (80-94); MONOCYTES # (AUTO) 0.7 K/uL (0.8-1.0); MONOCYTES % (AUTO) 6.5 % (1.7-9.3); NEUTROPHILS # (AUTO) 9.1 K/uL (1.8-7.7); NEUTROPHILS % (AUTO) 83.1 % (42.2-75.2); PLATELET COUNT (AUTO) 256 K/uL (140-450); RED BLOOD CELL COUNT(AUTO) 4.31 MIL/uL (4.20-6.10); RED CELL DISTRIBUTION WIDTH 13.2 % (11.6-13.7); WHITE BLOOD COUNT (AUTO) 10.9 K/uL (4.8-10.8)
[2019-11-06 07:17] LABS: ANION GAP 17.9 (8-16); CARBON DIOXIDE 24.2 mmol/L (21-32); CREATININE 0.9 mg/dL (0.7-1.3); POTASSIUM 4.1 mmol/L (3.5-5.1)
[2019-11-06 07:25] LABS: ALBUMIN 3.8 g/dL (3.4-5.0); TOTAL BILIRUBIN 0.5 mg/dL (0.0-1.0)
[2019-11-06 07:32] LABS: PROTHROMBIN TIME 9.3 secs (10.8-13.4)
[2019-11-06 08:08] VITALS: BP 111/66
== END 2019-11-06 08:08 | disposition home or self-care (01) ==
LOC: MED 05:57
DX: R07.9 Chest pain, unspecified (principal); M79.672 Pain in left foot; M79.671 Pain in right foot; I11.0 Hypertensive heart disease with heart failure; E11.9 Type 2 diabetes mellitus without complications; Z79.899 Other long term (current) drug therapy; Z79.82 Long term (current) use of aspirin; Z98.0 Intestinal bypass and anastomosis status
CPT/HCPCS: 36415; 71045; 80053; 83880; 84484; 85025; 85610; 85730; 99284; Q0092

== ENCOUNTER 2019-11-13 21:49 | Emergency (ER) | payer SELFPAY ==
[~2019-11-13] VITALS: Ht 180.3 cm; Wt 75.7 kg
--- NOTE | 2019-11-13 22:02 | NUR ---
PT 54 Y/O MALE BIB SELF FOR C/O NAUSEA, UMBILICAL AND EPIGASTRIC PAIN. PT HAS 5/10 PAIN IN UMBLIICAL AND EPIGASTRIC X 3 DAYS. PAIN IS UNPROVOKED. ABD IS FLAT SOFT AND NONTENDER. PT DENIES COUGH. AFEBRILE. DENIES DIARRHEA OR VOMITING. PT HAS C/O NAUSEA. PT STATES HE HAS DECREASED ENERGY. RESPIRATIONS ARE EVEN AND UNLABORED. SKIN IS WARM AND DRY TO TOUCH. BED LOCKED AND IN LOWEST POSITION. [facility] MED HX: HEART FAILURE, HTN, [place] IN 2009. ALLERGIES: NKA
[2019-11-13 22:09] VITALS: BP 135/95
--- NOTE | 2019-11-13 22:15 | NUR ---
MED HX: HTN, PT STATES HAS HF WITH AN EJECTION FRACTION OF 35%. PT ALSO STATES HE HAS HAD 6 BIPASS IN THE PAST AND "LEAKY HEART VALVE." PT STATES HE ALSO HAD AN AL IN 2010.
--- NOTE | 2019-11-13 22:17 | NUR ---
PT AMBULATED TO BED #12
[2019-11-13] MEDS ORDERED: NACL 0.9% 1,000 ML IV ONE (22:25)
[2019-11-13] MEDS ORDERED: ONDANSETRON 4 MG/2 ML VIAL IVP ONE (22:25)
--- NOTE | 2019-11-13 22:30 | NUR ---
IV STARTED IN L FA 20 G. NS 0.9% 1000ML RUNNING WIDE OPEN. IV SITE IS PATENT NO SWELLING OR REDNESS NOTED.
[2019-11-13 22:40] LABS: BASOPHILS % (AUTO) 0.3 % (0.0-2.0); EOSINOPHILS # (AUTO) 0.1 K/uL (0-0.4); EOSINOPHILS % (AUTO) 1.2 % (0.0-4.0); HEMATOCRIT 46.6 % (36-52); HEMOGLOBIN 15.3 g/dL (12.0-18.0); LYMPHOCYTES # (AUTO) 1.6 K/uL (2.0-11.5); LYMPHOCYTES % (AUTO) 16.5 % (20.5-51.1); MEAN CORPUSCULAR HEMOGLOBIN 31 pg (27-31); MEAN CORPUSCULAR HGB CONC 33 g/dL (33-37); MEAN CORPUSCULAR VOLUME 94.8 fL (80-94); MONOCYTES # (AUTO) 0.9 K/uL (0.8-1.0); MONOCYTES % (AUTO) 8.9 % (1.7-9.3); NEUTROPHILS # (AUTO) 7.2 K/uL (1.8-7.7); NEUTROPHILS % (AUTO) 73.1 % (42.2-75.2); PLATELET COUNT (AUTO) 315 K/uL (140-450); RED BLOOD CELL COUNT(AUTO) 4.91 MIL/uL (4.20-6.10); RED CELL DISTRIBUTION WIDTH 13.4 % (11.6-13.7); WHITE BLOOD COUNT (AUTO) 9.8 K/uL (4.8-10.8)
--- NOTE | 2019-11-13 22:50 | NUR ---
ZOFRAN IVP 4MG GIVEN FOR PT C/O NAUSEA.
[2019-11-13 22:56] LABS: ALBUMIN 3.5 g/dL (3.4-5.0); ANION GAP 11.6 (8-16); CARBON DIOXIDE 28.4 mmol/L (21-32); CREATININE 0.8 mg/dL (0.6-1.3); TOTAL BILIRUBIN 0.4 mg/dL (0.0-1.0)
[2019-11-13 23:14] LABS: APPEARANCE,URINE CLEAR (CLEAR); BILIRUBIN,URINE 1+ (NEGATIVE); BLOOD, URINE NEGATIVE (NEGATIVE); COLOR,URINE YELLOW (YELLOW); LEUKOCYTE ESTERASE ,URINE NEGATIVE (NEGATIVE); NITRITE, URINE NEGATIVE (NEGATIVE); UGLUCOSE NEGATIVE (NEGATIVE)
--- NOTE | 2019-11-13 23:30 | NUR ---
CONSENT GIVEN FOR CT WITH CONTRAST TO BE DONE.
--- NOTE | 2019-11-13 23:51 | NUR ---
pt transfer to ct via w/c.
--- NOTE | 2019-11-14 00:05 | NUR ---
pt returned back from ct via w/c.
--- NOTE | 2019-11-14 00:52 | NUR ---
PT RESTING IN BED EYES CLOSED. PT RESPIRATIONS ARE EVEN AND UNLABORED. PT RESPONDS TO VERBAL STIMULI. PT DENIES PAIN AT THIS TIME AND STATES HIS NAUSEA HAS DECREASED. PT ON MONITOR. SKIN IS WARM AND DRY TO TOUCH. WILL CONTINUE TO MONITOR.
--- NOTE | 2019-11-14 01:15 | NUR ---
DR KLINE AT BEDSIDE.
[2019-11-14] MEDS ORDERED: ALUMINUM HYD/MAG/SIMETHICONE 30 ML UDC PO ONE (01:25)
[2019-11-14] MEDS ORDERED: LIDOCAINE VISCOUS 2% 20 ML UDC PO ONE (01:25)
--- NOTE | 2019-11-14 02:00 | NUR ---
DR. KLINE AT BEDSIDE. PT HAD C/O NAUSEA. DR KLINE GAVE NEW ORDER FOR REGLAN 10MG TO BE GIVEN IVP.
[2019-11-14] MEDS ORDERED: METOCLOPRAMIDE 10 MG/2 ML INJ VIAL IVP ONE (02:15)
--- NOTE | 2019-11-14 02:24 | NUR ---
PT GIVEN REGALN 10 MG IVP FOR NAUSEA. IV SITE IS PATENT. NO REDNESS, SWELLING NOTED. PT DENIES PAIN AT THE IV SITE.
[2019-11-14 02:30] VITALS: BP 121/71
--- NOTE | 2019-11-14 02:30 | NUR ---
Patient discharged with v/s stable. Written and verbal after care instructions given and explained. Patient alert, oriented and verbalized understanding of instructions. Ambulatory with steady gait. All questions addressed prior to discharge. ID band removed. Patient advised to follow up with PMD. Rx of OMEPRAZOLE, ZOFRAN, MYLANTA given. Patient educated on indication of medication including possible reaction and side effects. Opportunity to ask questions provided and answered.
== END 2019-11-14 02:30 | disposition home or self-care (01) ==
LOC: MED 21:49
DX: K29.70 Gastritis, unspecified, without bleeding (principal); E11.9 Type 2 diabetes mellitus without complications; I10 Essential (primary) hypertension; Z95.1 Presence of aortocoronary bypass graft; Z98.890 Other specified postprocedural states; Z79.82 Long term (current) use of aspirin; Z79.899 Other long term (current) drug therapy
CPT/HCPCS: 36415; 74177; 80053; 81003; 82150; 83690; 85025; 96361; 96374; 96375; 99284; J2405; J2765; J7030; Q9967

== ENCOUNTER 2020-09-30 18:44 | Emergency (ER) | payer OTHER ==
[~2020-09-30] VITALS: Ht 177.8 cm; Wt 74.8 kg
[~2020-09-30 18:44] MED LIST changes: +MIRT-91 PO; -MIRT15TA PO
[2020-09-30 19:05] VITALS: BP 130/78
--- NOTE | 2020-09-30 19:10 | NUR ---
PT TRIAGED. NOT IN ACUTE DISTRESS. WAITING IN TENT TO BE SEEN BY MD.
--- NOTE | 2020-09-30 19:14 | NUR ---
SEEN AND EXAMINED BY HE WITH ORDERS AND CARRIED OUT
[2020-09-30] MEDS ORDERED: KETOROLAC 30 MG/ML VIAL IM ONE (19:15)
--- NOTE | 2020-09-30 19:25 | NUR ---
SWAB DONE AND SENT TO LAB
--- NOTE | 2020-09-30 19:26 | NUR ---
MEDICATED PER ERMDS ORDER, TOLERATED WELL.
--- NOTE | 2020-09-30 20:16 | NUR ---
PCR COLLECTED AND WALKED TO LAB.
[2020-09-30 21:10] VITALS: BP 130/78
--- NOTE | 2020-09-30 21:10 | NUR ---
Patient discharged with v/s stable. Written and verbal after care instructions given and explained. Patient alert, oriented and verbalized understanding of instructions. Ambulatory with steady gait. All questions addressed prior to discharge. ID band removed. Patient advised to follow up with PMD. Rx of METOPROLOL, KEFLEX,ASPIRIN,ACETAMINOPHEN given. Patient educated on indication of medication including possible reaction and side effects. Opportunity to ask questions provided and answered.
== END 2020-09-30 21:10 | disposition home or self-care (01) ==
LOC: MED 18:44
DX: N39.0 Urinary tract infection, site not specified (principal); Z20.828 Contact with and (suspected) exposure to other viral communicable diseases; Z76.0 Encounter for issue of repeat prescription; Z71.6 Tobacco abuse counseling; I25.2 Old myocardial infarction; E11.9 Type 2 diabetes mellitus without complications; I10 Essential (primary) hypertension; F17.210 Nicotine dependence, cigarettes, uncomplicated; Z98.890 Other specified postprocedural states; Z79.51 Long term (current) use of inhaled steroids; Z79.2 Long term (current) use of antibiotics; Z79.82 Long term (current) use of aspirin; Z79.899 Other long term (current) drug therapy
CPT/HCPCS: 81002; 96372; 99283; J1885; U0003